=== PATIENT | male | born 2000 | race Caucasian/White ===

== ENCOUNTER 2023-10-13 19:18 | Emergency (ER) | payer OTHER ==
[2023-10-13 19:45] LABS: BASOPHILS PERCENT AUTO 0.3 % (0.3-3.8); EOSINOPHILS ABSOLUTE AUTO 0.1 x10-3/uL (0.0-0.6); EOSINOPHILS PERCENT AUTO 1.3 % (0.1-6.8); HEMATOCRIT 49.5 % (38.3-50.1); HEMOGLOBIN 16.7 g/dL (12.9-17.7); LYMPHOCYTES ABSOLUTE AUTO 2.3 x10-3/uL (0.5-4.5); LYMPHOCYTES PERCENT AUTO 31.9 % (15.8-45.3); MEAN CORPUSCULAR HEMOGLOBIN 29.7 pg (27.0-33.3); MEAN CORPUSCULAR HGB CONC 33.8 g/dL (28.7-35.3); MEAN CORPUSCULAR VOLUME 88.1 fL (80.8-98.7); MEAN PLATELET VOLUME 7.7 fL (6.7-11.0); MONOCYTES ABSOLUTE AUTO 0.7 x10-3/uL (0.0-1.2); MONOCYTES PERCENT AUTO 9.6 % (5.5-15.2); NEUTROPHILS PERCENT AUTO 56.9 % (40.3-71.8); PLATELET COUNT,PLT 270 x10(3)uL (117-477); RED BLOOD CELL COUNT 5.62 x10(6)uL (3.90-5.90); RED CELL DISTRIBUTION WIDTH 13.1 % (12.4-15.0); WHITE BLOOD CELL COUNT,WBC 7.1 x10-3/uL (3.2-10.1)
[2023-10-13 19:46] LABS: BLOOD UREA NITROGEN,BUN 13 mg/dL (7-18); BUN/CREATININE RATIO 14.4 (9-20); CALCIUM 8.9 mg/dL (8.6-10.2); CARBON DIOXIDE,CO2 33 mmol/L (21-32); CHLORIDE,CL 104 mmol/L (100-110); CREATININE 0.9 mg/dL (0.70-1.30); ESTIMATED GFR 123 mL/min (>60); GLUCOSE RANDOM 82 mg/dL (80-116); POTASSIUM,K 4.4 mmol/L (3.5-5.3); SODIUM,NA 143 mmol/L (135-145)
[2023-10-13 19:47] LABS: INR 1.02 (1.00-1.24); PROTHROMBIN TIME 10.6 sec (9.0-11.1)
[2023-10-13 19:52] LABS: A/G RATIO 1.1; ALANINE AMINOTRANSFERASE,ALT 23 U/L (12-36); ALBUMIN 4.2 g/dL (3.5-5.2); ALKALINE PHOSPHATASE 79 IU/L (56-112); ASPARTATE AMNIOTRANSFERASE,AST 16 IU/L (5-25); BILIRUBIN TOTAL 0.6 mg/dL (0.1-1.3); PROTEIN TOTAL,TP 8.2 g/dL (6.0-8.0)
== END 2023-10-13 20:12 | disposition home or self-care (01) ==
LOC: FB.ED 19:18
DX: K60.2 Anal fissure, unspecified (principal); K62.5 Hemorrhage of anus and rectum; Z88.1 Allergy status to other antibiotic agents
CPT/HCPCS: 36415; 80053; 85025; 85610; 99283